=== PATIENT | female | born 1965 | race Caucasian/White ===

== ENCOUNTER 2024-01-11 17:43 | Emergency (ER) | payer OTHER, SELFPAY ==
[2024-01-11 17:49] VITALS: BP 142/86
[2024-01-11 18:11] VITALS: BP 153/78
--- NOTE | 2024-01-11 19:02 | ED.GENMED ---
History of Present Illness
General
Chief Complaint: Musculo-Skeletal Complaint
Time Seen by Provider: 01/11/24 17:59
History of Present Illness
History of Present Illness:
59-year-old female presents to the emergency department for evaluation of multiple injuries after a fall off of 1 stone step while at the [employer] today. Landed predominantly on the left knee but then also notes pain and injury to the right chest
wall as well as the right foot and ankle. She was not able to bear weight on the left leg. Denies any head strike.
Review of Systems
Review of Systems
Allergies reviewed?: Yes
All Other Systems: ROS reviewed and negative except as documented in HPI and ROS
Phy Exam
Physical Exam
Physical Exam:
GEN: Well appearing, NAD, WDWN
Eyes: PERRLA, EOMs intact, no scleral icterus
HENT: NCAT, oral mucosa moist
Lungs: CTAB, no wheezes, rales, rhonchi, normal chest wall excursion
Cardiac: RRR
Neuro: AO x 3, no focal deficits to BUE/BLE, normal sensation throughout
MSK: Moderate swelling to the left anterior knee with palpable deformity of the patella. No obvious deformity of the right chest wall in the midaxillary line however there is significant palpable tenderness. No obvious deformity to the right ankle
with normal range of motion
Skin: No rashes, petechiae. Normal color, no pallor or jaundice.
Psych: Calm, cooperative, proper hygiene
Course
Orders/Labs/Results
Orders:
Orders
01/11/24 18:13
CR Foot - Right Min 3 Views Routine
Comment:
Reason For Exam: fall
CR Knee - Left 4 Or More View* Urgent
Comment:
Reason For Exam: fall
CR Ribs-right 3 Vw W/pa Chest* Urgent
Comment:
Reason For Exam: fall
01/11/24 19:02
Oxycodone [Roxicodone] 5 mg PO NOW STA
Vital Signs
Initial and Last Documented VS:
Initial Vital Signs
Temp Pulse Resp BP Pulse Ox
98.3 F 85 16 142/86 97
01/11/24 17:49 01/11/24 17:49 01/11/24 17:49 01/11/24 17:49 01/11/24 17:49
Last Documented Vital Signs
Temp Pulse Resp BP Pulse Ox
98.3 F 85 16 153/78 96
01/11/24 17:49 01/11/24 17:49 01/11/24 17:49 01/11/24 18:11 01/11/24 18:15
MDM/Problems Addressed
MDM/Problems Addressed:
X-rays reveal a comminuted left patella fracture, patient placed in knee immobilizer and given crutches, advised weightbearing as tolerated until orthopedic follow-up. Chest/rib x-rays as well as right foot x-ray showed no evidence for acute
fracture
*Critical Care Note
Total Time (30-74mins, 75-104mins- exclusive of procedures): Not Applicable
ED Attending Note
-
Portions of this chart may have been created with voice recognition software.� Occasional wrong word or��sound alike� substitutions may have occurred due to the inherent limitations of voice recognition software.
Discharge Plan
Departure
Patient Disposition: Home (Routine Discharge)
Date of Disposition: 01/11/24
Time of Disposition: 19:02
Patient with high blood pressure during this ER visit?: No
Discharge Problem:
Closed fracture of left patella, Contusion of right chest wall
Instructions: Patella Fracture (DC)
Prescriptions:
New
oxycodone 5 mg tablet
5 mg PO Q8H PRN (Reason: Pain) Qty: 10 0RF
No Action
levothyroxine 50 mcg Tablet
50 mcg PO DAILY
Referrals:
Leo Pavon MD [Family Provider] -
James Prado MD [Active] -
Activity Restrictions/Additional Instructions:
Elevate the knee and ice often, do not remove the immobilizer for any reason unless the knee will be relaxed and straight at all times. I would not recommend you attempt to shower with the knee immobilizer off as fall risk is too high
Interventions
Interventions:
*Risk Screen - Suicide Last Done: 01/11/24 17:49
*General Assessment Last Done: 01/11/24 18:05
*Neglect/Abuse Screening Last Done: 01/11/24 17:49
*ED COVID-19 Vaccine History Last Done: 01/11/24 18:05
*Nursing Disposition Last Done: 01/11/24 19:18
ED-Musculoskeletal Assessment Last Done: 01/11/24 18:05
Discharge Date and Time
Discharge Date/Time: 01/11/24 19:23
Print Language: COMORAN
[2024-01-11] MEDS: ROXICODONE 5 MG PO (19:10)
== END 2024-01-11 19:23 | disposition home or self-care (01) ==
LOC: EMR 17:43
PROVIDERS: EMERGENCY PHYSICIAN Emergency Medicine; FAMILY PHYSICIAN Internal Medicine
DX: S82.002A Unspecified fracture of left patella, initial encounter for closed fracture (principal); S20.211A Contusion of right front wall of thorax, initial encounter; M25.571 Pain in right ankle and joints of right foot; W10.8XXA Fall (on) (from) other stairs and steps, initial encounter; Y92.89 Other specified places as the place of occurrence of the external cause; Z79.82 Long term (current) use of aspirin
CPT/HCPCS: 99284; 29505; 71101; 73564; 73630